=== PATIENT | female | born 2000 | race Asian ===

== ENCOUNTER 2019-03-06 10:09 | Emergency (ER) | payer OTHER ==
--- NOTE | 2019-03-06 12:06 | ED ---
Abdominal Pain/Female - HPI Summary HPI Summary: Pt. is a 18 y.o female who presents to the ER for worsening abd. pain x 2 days. Pt. states pain initially started around her umbilicus and migrated to her abdomen. Pain worse with movement and palpation. Associated sxs of anorexia. Pt. denies fever, cp, sob, V/D/C, urinary sxs, vaginal bleeding or discharge. Sxs are moderate in severity. - History of Current Complaint Chief Complaint: EDAbdPain Stated Complaint: STOMACH PAIN PER PT Time Seen by Provider: 03/06/19 11:56 Hx Obtained From: Patient Pain Intensity: 4 Allergies/Adverse Reactions: Allergies Allergy/AdvReac Type Severity Reaction Status Date / Time No Known Allergies Allergy Verified 03/06/19 10:13 PMH/Surg Hx/FS Hx/Imm Hx Previously Healthy: Yes Infectious Disease History: No Infectious Disease History: Denies: Traveled Outside the [place] in Last 30 Days - Family History Known Family History: Positive: Non-Contributory - Social History Occupation: Student Lives: Dormitory/Roommates Hx Substance Use: No Hx Tobacco Use: No Review of Systems Constitutional: Negative Negative: Fever, Chills ENT: Negative Cardiovascular: Negative Respiratory: Negative Positive: Abdominal Pain, Nausea. Negative: Vomiting, Diarrhea Genitourinary: Negative Negative: dysuria, discharge Neurological: Negative All Other Systems Reviewed And Are Negative: Yes Physical Exam Triage Information Reviewed: Yes Vital Signs On Initial Exam: Initial Vitals Temp Pulse Resp BP Pulse Ox 98.9 F 83 16 132/81 100 03/06/19 10:11 03/06/19 10:11 03/06/19 10:11 03/06/19 10:11 03/06/19 10:11 Vital Signs Reviewed: Yes Appearance: Positive: Well-Appearing - Pt. lying in bed in NAD. Skin: Positive: Warm, Dry Head/Face: Positive: Normal Head/Face Inspection Eyes: Positive: Normal, EOMI Neck: Positive: Supple Respiratory/Lung Sounds: Positive: Clear to Auscultation, Breath Sounds Present Cardiovascular: Positive: Normal, RRR Abdomen Description: Positive: Other: - Abd. is soft with moderate tenderness to RLQ and LLQ with guarding. No CVA tenderness. Neurological: Positive: Normal, CN Intact II-III Psychiatric: Positive: Affect/Mood Appropriate - Pt. lying in bed in NAD. SO present. Procedures - Sedation Patient Received Moderate/Deep Sedation with Procedure: No Diagnostics - Vital Signs Vital Signs Temp Pulse Resp BP Pulse Ox 03/06/19 10:11 98.9 F 83 16 132/81 100 - Laboratory Result Diagrams: 03/06/19 12:41 03/06/19 12:19 Lab Statement: Any lab studies that have been ordered have been reviewed, and results considered in the medical decision making process. Abdominal Pain Fem Course/Dx - Course Course Of Treatment: Pt. presenting with worsening lower abd. pain. She is afebrile. Labs and ct scan ordered to evaluate appendix. Labs are unremarkable. CT per radiology: IMPRESSION: Normal appendix. Moderate amount of free fluid in the pelvis with enlarged. right ovary measuring up to 4.4 cm. Underlying hemorrhagic cyst is not excluded. Other. ovarian pathology is not excluded. Likely hepatic cyst. U/S per radiology: IMPRESSION: Heterogeneously echogenic lesion in the right ovary consistent with. hemorrhagic cyst with a moderate amount of complex free fluid in the cul-de-sac. Flow is. noted in the right ovary. Suspect pain is secondary to ovarian cyst. Results discussed. Will have pt. f.u with [facility] or [facility] NSIADs for pain as directed. Will return to ER if sxs change or worsen. Pt. understands and agrees with plan. - Diagnoses Differential Diagnosis: Positive: Appendicitis, Constipation, Ectopic , Ovarian Cyst, , Urinary Tract Infection Provider Diagnoses: Ovarian cyst, Abdominal pain Discharge ED - Sign-Out/Discharge Documenting (check all that apply): Patient Departure - Discharge Plan Condition: Good Disposition: HOME Patient Education Materials: Ovarian Cyst (ED) Referrals: [facility] - Calvin BEAULIEU [Primary Care Provider] - Eliot Villa JR, DO [Doctor of Osteopathy] - Additional Instructions: Schedule a follow up appointment within 1-2 weeks Ibuprofen 400mg every 6 hours as needed for pain Can apply warm compress to pelvis to help with pain Return to ER for increased pain, fever, vomiting, or if concerned - Billing Disposition and Condition Condition: GOOD Disposition: Home
[2019-03-06] MEDS ORDERED: NS 0.9% 1000 ML** 1,000 ML IV ONE (12:41)
[2019-03-06 12:44] LABS: ALT 8 U/L (7-52); AST 14 U/L (13-39); Albumin 4.7 g/dL (3.2-5.2); Albumin/Globulin Ratio 1.3 (1-3); Alkaline Phosphatase 28 U/L (34-104); Anion Gap 9 mmol/L (2-11); BUN/Creatinine Ratio 14.5 (8-20); Blood Urea Nitrogen 9 mg/dL (6-24); C Reactive Protein 1.66 mg/L (<8.01); CO2 Carbon Dioxide 23 mmol/L (22-32); Calcium 9.5 mg/dL (8.6-10.3); Chloride 106 mmol/L (101-111); EGFR African American 148.5 (>60); EGFR Non-African American 122.7 (>60); Globulin 3.6 g/dL (2-4); Glucose 79 mg/dL (70-100); Potassium 3.5 mmol/L (3.5-5.0); Sodium 138 mmol/L (135-145); Total Protein 8.3 g/dL (6.4-8.9)
[2019-03-06 12:51] LABS: ABS Eosinophils 0.1 10^3/ul (0-0.6); ABS Lymphocytes 2.2 10^3/ul (1.0-4.8); ABS Monocytes 0.5 10^3/ul (0-0.8); ABS Neutrophils 6.3 10^3/ul (1.5-7.7); Eosinophil % 0.6 %; Hematocrit 37 % (35-47); Hemoglobin 12.4 g/dL (12.0-16.0); Lymphocyte % 24.3 %; Mean Corpuscular HGB Conc 34 g/dL (31-36); Mean Corpuscular Hemoglobin 31 pg (27-31); Mean Corpuscular Volume 91 fL (80-97); Platelet Count 202 10^3/uL (150-450); Red Blood Count 4.01 10^6 /uL (3.70-4.87); Red Cell Distribution Width 13 % (10-15); White Blood Count 9.1 10^3/uL (3.5-10.8)
[2019-03-06 12:53] LABS: HCG Pregnancy < 0.60 mIU/mL
[2019-03-06 14:21] LABS: Urine Appearance Clear; Urine Bilirubin Negative (Negative); Urine Blood Negative (Negative); Urine Color Yellow; Urine Glucose Negative (Negative); Urine Ketones 1+ (Negative); Urine Nitrite Negative (Negative); Urine Protein Negative (Negative); Urine Urobilinogen Negative (Negative)
[2019-03-06] MEDS ORDERED: Iohexol 300* (CONTRAST) 10 ML SDV IV ONE (14:34)
[2019-03-06] MEDS ORDERED: Ibuprofen TAB* 600 MG PO ONE (15:36)
[2019-03-06 16:42] VITALS: BP 126/77
== END 2019-03-06 16:42 | disposition home or self-care (01) ==
LOC: ED 10:09
DX: N83.201 Unspecified ovarian cyst, right side (principal); R10.31 Right lower quadrant pain; R10.32 Left lower quadrant pain; R63.0 Anorexia
CPT/HCPCS: 36415; 74177; 76856; 80053; 81003; 83690; 84702; 85025; 86140; 96360; 99282; A9270-GY; Q9967

== ENCOUNTER 2019-03-09 08:40 | Emergency (ER) | payer OTHER ==
--- NOTE | 2019-03-09 09:20 | ED ---
Abdominal Pain/Female - HPI Summary HPI Summary: Pt is a 18 y/o F presenting to the ED with a chief complaint of abdominal pain initially onset this past 03/05/19. She came to the ED to be evaluated and was sent home, but came back d/t worsening severity. She reports pain in the lower abd that has been severe since last night, and diarrhea. She also notes she is on her menstrual period currently, and has been taking IBU w/ o relief. She denies fever, nausea, vomiting, or blood in her stool. She last took IBU at 0800. - History of Current Complaint Chief Complaint: EDAbdPain Stated Complaint: LOW ABD PAIN PER PT Time Seen by Provider: 03/09/19 09:04 Hx Obtained From: Patient Onset/Duration: Gradual Onset, Lasting Hours, Still Present Timing: Hours Severity Initially: Mild Severity Currently: Moderate Pain Intensity: 6 Pain Scale Used: 0-10 Numeric Location: Suprapubic Radiates: No Aggravating Factor(s): Nothing Alleviating Factor(s): Nothing Associated Signs and Symptoms: Positive: Vaginal Bleeding, Diarrhea. Negative: Fever, Nausea, Vomiting Allergies/Adverse Reactions: Allergies Allergy/AdvReac Type Severity Reaction Status Date / Time No Known Allergies Allergy Verified 03/09/19 08:46 Home Medications: Home Medications NK [No Home Medications Reported] 03/09/19 [History Confirmed 03/09/19] PMH/Surg Hx/FS Hx/Imm Hx Previously Healthy: Yes Endocrine/Hematology History: Denies: Hx Diabetes Cardiovascular History: Denies: Hx Hypertension Infectious Disease History: No Infectious Disease History: Denies: Traveled Outside the [place] in Last 30 Days - Family History Known Family History: Negative: Diabetes - Social History Occupation: Student Alcohol Use: None Hx Substance Use: No Substance Use Type: Reports: None Hx Tobacco Use: No Smoking Status (MU): Never Smoked Tobacco Review of Systems Negative: Fever Positive: Abdominal Pain, Diarrhea. Negative: Vomiting, Nausea, Other - blood in stool Positive: other - vaginal bleeding - currently on period All Other Systems Reviewed And Are Negative: Yes Physical Exam - Summary Physical Exam Summary: Constitutional: Well-developed, Well-nourished, Alert. (-) Distressed Skin: Warm, Dry HENT: Normocephalic; Atraumatic Eyes: Conjunctiva normal Neck: Musculoskeletal ROM normal neck. (-) JVD, (-) Stridor, (-) Tracheal deviation Cardio: Rhythm regular, rate normal, Heart sounds normal; Intact distal pulses; Radial pulses are 2+ and symmetric. (-) Murmur Pulmonary/Chest wall: Effort normal. (-) Respiratory distress, (-) Wheezes, (-) Rales Abd: Soft, mild suprapubic and LLQ tenderness, (-) Distension, (-) Guarding, (- ) Rebound Musculoskeletal: (-) Edema Lymph: (-) Cervical adenopathy Neuro: Alert, Oriented x3 Psych: Mood and affect Normal Triage Information Reviewed: Yes Vital Signs On Initial Exam: Initial Vitals Temp Pulse Resp BP Pulse Ox 98.4 F 86 14 134/82 99 03/09/19 08:42 03/09/19 08:42 03/09/19 08:42 03/09/19 08:42 03/09/19 08:42 Vital Signs Reviewed: Yes Procedures - Sedation Patient Received Moderate/Deep Sedation with Procedure: No Diagnostics - Vital Signs Vital Signs Temp Pulse Resp BP Pulse Ox 03/09/19 08:42 98.4 F 86 14 134/82 99 - Laboratory Result Diagrams: 03/09/19 09:15 03/09/19 09:15 Lab Statement: Any lab studies that have been ordered have been reviewed, and results considered in the medical decision making process. Abdominal Pain Fem Course/Dx - Course Course Of Treatment: Patient is here with lower abdominal pain. Patient has tenderness in her suprapubic region and left lower quadrant. Patient's abdominal exam is overall benign with no evidence of peritonitis. Patient was seen here on 03/06/19 where a thorough workup was performed. Patient had a CT scan which showed a right ovarian cyst. Patient had an ultrasound which showed a right ovarian cyst with some free fluid in the cul-de-sac. Patient is discharge instructions take ibuprofen. Patient returned with continuation of her pain. Patient's pain never relented which makes this unlikely to be torsion. Patient's pain is on the left side the opposite side of her cyst. Patient hemodynamically is stable with no evidence of hemorrhage. Patient had a repeat CBC which showed no drop in her hemoglobin or hematocrit. Patient was encouraged to start high-dose ibuprofen and to follow up with [facility]. Patient has no STD risk factors she is in a monogamous relationship with no discharge. - Diagnoses Provider Diagnoses: Lower abdominal pain Discharge ED - Sign-Out/Discharge Documenting (check all that apply): Patient Departure - Discharge Plan Condition: Stable Disposition: HOME Patient Education Materials: Abdominal Pain (ED) Referrals: [facility] [place] - Calvin BEAULIEU [Primary Care Provider] - Additional Instructions: Take 800mg of Ibuprofen every 8 hours. Come back to the emergency department if you are soaking through a pad every hour or if you have worsening abdominal pain. - Billing Disposition and Condition Condition: STABLE Disposition: Home - Attestation Statements Document Initiated by Scribe: Yes Documenting Scribe: Sunita Taylor Provider For Whom [employer] is Documenting (Include Credential): Tone Barnett MD. Scribe Attestation: Sunita Barrera scribed for Tone Barnett MD. on 03/09/19 at 1153. Scribe Documentation Reviewed: Yes Provider Attestation: The documentation as recorded by the autumnibeSunita accurately reflects the service I personally performed and the decisions made by Tone valadez MD. Status of Scribe Document: Viewed
[2019-03-09 09:22] LABS: ABS Eosinophils 0.2 10^3/ul (0-0.6); ABS Lymphocytes 1.3 10^3/ul (1.0-4.8); ABS Monocytes 0.7 10^3/ul (0-0.8); Eosinophil % 3.5 %; Hematocrit 35 % (35-47); Lymphocyte % 24.9 %; Mean Corpuscular HGB Conc 34 g/dL (31-36); Mean Corpuscular Hemoglobin 31 pg (27-31); Mean Corpuscular Volume 89 fL (80-97); Mean Platelet Volume 7.5 fL (7.4-10.4); Nucleated Red Blood Cells % 0.1; Platelet Count 190 10^3/uL (150-450); Red Blood Count 3.93 10^6 /uL (3.70-4.87); Red Cell Distribution Width 13 % (10-15); White Blood Count 5.2 10^3/uL (3.5-10.8)
[2019-03-09 09:42] LABS: ALT 8 U/L (7-52); AST 12 U/L (13-39); Albumin 4.2 g/dL (3.2-5.2); Albumin/Globulin Ratio 1.4 (1-3); Alkaline Phosphatase 27 U/L (34-104); Anion Gap 6 mmol/L (2-11); BUN/Creatinine Ratio 12.7 (8-20); Blood Urea Nitrogen 8 mg/dL (6-24); CO2 Carbon Dioxide 28 mmol/L (22-32); Calcium 9.3 mg/dL (8.6-10.3); Chloride 103 mmol/L (101-111); EGFR African American 145.8 (>60); EGFR Non-African American 120.5 (>60); Globulin 3.1 g/dL (2-4); Glucose 92 mg/dL (70-100); Potassium 3.5 mmol/L (3.5-5.0); Sodium 137 mmol/L (135-145); Total Protein 7.3 g/dL (6.4-8.9)
[2019-03-09 09:49] LABS: HCG Pregnancy < 0.60 mIU/mL
[2019-03-09 10:28] VITALS: BP 113/74
== END 2019-03-09 10:20 | disposition home or self-care (01) ==
LOC: ED 08:40
DX: R10.30 Lower abdominal pain, unspecified (principal)
CPT/HCPCS: 36415; 80053; 84702; 85025; 99282